=== PATIENT | male | born 1960 | race Caucasian/White ===

== ENCOUNTER 2021-12-05 09:14 | Emergency (ER) | payer OTHER ==
[~2021-12-05] VITALS: Ht 165.1 cm; Wt 68.0 kg
--- NOTE | 2021-12-05 09:14 | NUR ---
pt christina and taken to Chair A
[2021-12-05 09:20] VITALS: BP 123/67
[2021-12-05] MEDS ORDERED: KETOROLAC 30 MG/ML VIAL IM ONE (09:30)
[2021-12-05] MEDS ORDERED: CYCLOBENZAPRINE 10 MG TAB PO ONE (09:30)
--- NOTE | 2021-12-05 10:06 | NUR ---
patient resting in chair A, no signs of distress noted
[2021-12-05] MEDS ORDERED: DICL100G5 TP (10:26)
[2021-12-05] MEDS ORDERED: IBUP-2213 PO (10:26)
[2021-12-05] MEDS ORDERED: CYCL-711 PO (10:26)
--- NOTE | 2021-12-05 11:12 | NUR ---
Patient discharged with v/s stable. Written and verbal after care instructions given and explained. Patient alert, oriented and verbalized understanding of instructions. Ambulatory with steady gait. All questions addressed prior to discharge. ID band removed. Patient advised to follow up with PMD. Rx of flexeril, diclofenac sodium, and ibuprofen given. Patient educated on indication of medication including possible reaction and side effects. Opportunity to ask questions provided and answered.
== END 2021-12-05 11:12 | disposition home or self-care (01) ==
LOC: MED 09:14
DX: M13.862 Other specified arthritis, left knee (principal); I10 Essential (primary) hypertension; F17.210 Nicotine dependence, cigarettes, uncomplicated; Z79.899 Other long term (current) drug therapy; Z88.2 Allergy status to sulfonamides
CPT/HCPCS: 81002; 96372; 99283; J1885